=== PATIENT | male | born 1940 | race Caucasian/White ===

== ENCOUNTER 2017-04-27 17:25 | Emergency (ER) | payer OTHER ==
[~2017-04-27] VITALS: Ht 188 cm; Wt 108.9 kg
[~2017-04-27 17:25] MED LIST: CARDIZEM CD180 MG PO; FELODIPINE 5 MG5 M1 PO; FELODIPINE ER10 MG PO; GLUCOPHAGE500 MG PO; LIPITOR 20 MG T20 M1 PO; LOSARTAN POTAS100 MG PO; ORACEA40 MG PO; PRILOSEC 20 MG20 MG PO; PRILOSEC20 MG PO; SIMVASTATIN20 MG; TECTURNA; TECTURNA PO; TOPICORT15 G2; XARELTO10 MG PO; ZOCOR 20 MG TAB20 M1 PO
[2017-04-27 19:55] VITALS: BP 156/71
[2017-06-26] MEDS ORDERED: PROTONIX40 M1 PO (16:07)
[2017-07-20] MEDS ORDERED: XARELTO20 MG PO (09:09)
== END 2017-04-27 19:55 | disposition home or self-care (01) ==
LOC: ER 17:25
DX: S01.81XA Laceration without foreign body of other part of head, initial encounter (principal); S80.01XA Contusion of right knee, initial encounter; S60.415A Abrasion of left ring finger, initial encounter; E11.9 Type 2 diabetes mellitus without complications; I10 Essential (primary) hypertension; K21.9 Gastro-esophageal reflux disease without esophagitis; I48.91 Unspecified atrial fibrillation; E78.00 Pure hypercholesterolemia, unspecified; Z88.8 Allergy status to other drugs, medicaments and biological substances; Z87.891 Personal history of nicotine dependence; W01.0XXA Fall on same level from slipping, tripping and stumbling without subsequent striking against object, initial encounter; Y93.89 Activity, other specified; Y92.89 Other specified places as the place of occurrence of the external cause; Y99.8 Other external cause status

== ENCOUNTER → 2017-07-27 | Outpatient (CLI) | payer OTHER ==
[~2017-07-27] MED LIST changes: +PROTONIX40 M1 PO; +XARELTO20 MG PO
[2017-07-27 08:30] VITALS: BP 142/68
[2017-07-27 09:45] VITALS: BP 140/70
== END ==
LOC: OPONC
DX: D50.9 Iron deficiency anemia, unspecified (principal); R79.0 Abnormal level of blood mineral
CPT/HCPCS: 95000

== ENCOUNTER → 2018-03-07 | Outpatient (CLI) | payer OTHER ==
[2018-03-07 08:37] LABS: CREATININE 0.9 mg/dL (0.7-1.3)
== END ==
LOC: CAT 08:01
PROVIDERS: Family Medicine
DX: J84.10 Pulmonary fibrosis, unspecified (principal); J98.11 Atelectasis; M25.78 Osteophyte, vertebrae

== ENCOUNTER → 2018-04-12 | Outpatient (CLI) | payer OTHER ==
[~2018-04-12] VITALS: Ht 188 cm; Wt 112.9 kg
[~2018-04-12] MED LIST changes: +DILTIAZEM 24HR180 M1 PO; +DILTIAZEM HCL90 MG PO
--- NOTE | 2018-04-13 08:37 | P ---
[facility] [place] [address] PROCEDURE REPORT Name: WON MEDEROS Mery Room #: REG [facility] [id number] Admission: 04/12/18 Attend Phys: Royal Alvarez MD Discharge: Date of : 42 Report #: [id number] THIS REPORT FOR: //name// CC: Royal Duran BRIEF HISTORY: The patient is a 77-year-old male with a chronic cough. He has been treated with pantoprazole ____ it was increased to twice daily and cough persists. He also reports eating will stimulate a cough. In addition, he does have intermittent episodes of solid food dysphagia and has had previous esophageal dilation. PREOPERATIVE DIAGNOSIS: Chronic persistent cough. POSTOPERATIVE DIAGNOSES: 1. Patchy antral gastritis. 2. Small hiatus hernia. MEDICATIONS: Deep sedation with propofol per anesthesia. SPECIMEN: Biopsy gastritis. ESTIMATED BLOOD LOSS: 3 mL. PROCEDURE: EGD with biopsy and Norris dilation. FINDINGS: Prior to propofol sedation, procedure of upper endoscopy discussed with the patient as well as potential risks and its complications. He indicates he understands and desires to proceed. DESCRIPTION OF PROCEDURE: With the patient in left lateral decubitus position, the Olympus video endoscope was inserted in the cervical esophagus under direct vision without difficulty. Examination of this organ through its entire length revealed normal esophageal mucosa down the squamocolumnar junction. Squamocolumnar junction was inspected and noted to be unremarkable. No ulcers or erosions were seen. No Ace's mucosa was seen. No strictures or masses were seen. A small 2 cm sliding type hiatus hernia was noted. The mucosa in hernia was unremarkable. Scope was advanced in the stomach, was examined on end view as well as retroflexed views. There was patchy erythema in the antrum of stomach. No ulcers were seen. Upon retroflexion, no mass lesions were seen. The hiatus hernia was seen. There were no retained solids or liquids in the stomach. Pylorus was normal. Duodenal bulb was normal. Postbulbar duodenal sweep was normal. At that point, the scope was slowly withdrawn under careful circumferential views and confirmed the above findings. The patient tolerated the procedure well. [facility] [address] [place] [address] PROCEDURE REPORT Name: ORENJOSEWON Mery Room #: REG [facility].#: [id number] Admission: 04/12/18 Attend Phys: Royal Alvarez MD Discharge: Date of : 41 Report #: [id number] Subsequently, he was dilated with passage of a 54-Ethiopian Norris dilator without resistance. CONDITION OF THE PATIENT UPON DISCHARGE: Following the procedure, the patient drowsy. He will be discharged home when fully ambulatory. INSTRUCTIONS TO THE PATIENT AND FAMILY AT THE TIME OF DISCHARGE: I did not identify any endoscopic evidence of reflux esophagitis. It is noted that as soon as we advanced the scope in his oropharynx he started coughing and he coughed throughout much of the procedure. An etiology for his chronic cough is not identified endoscopically. He will follow up on biopsies today. He reports that cough will start often times when he swallows food. We will have him obtain a video swallow to evaluate for aspiration. At this point in time, I would have him continue his twice daily PPI. If cough continues and above-mentioned studies are negative, consider cough study, which is available if it is still open, which is being conducted with a novel drug for chronic cough. He will otherwise return to care of Dr. Hilton Duran and return to see me as needed. <ELECTRONICALLY SIGNED> By: Royal Alvarez MD 04/13/18 0837 0928 0952 Royal Alvarez MD /nt
--- NOTE | 2018-04-13 15:06 | PATH ---
[facility] [address] [place] [address] PATHOLOGY RPT PROCEDURE Name: WON MEDEROS Mery Room #: REG KRISTYN Guevara#: [id number] Admission: 04/12/18 Date of : 42 Discharge: Report #: [id number] Path Case #: [id number] [facility] Accession Number: [id number] . 01 Material submitted: . GASTRITIS BIOPSY R/O H PYLORI . 01 Clinical history: . Pre-OP DX: Dysphagia, reflux, cough Post-OP DX: Gastritis, small hiatal hernia . 02 Diagnosis: Gastric mucosa, gastritis rule out H. pylori, endoscopic biopsy: - Helicobacter pylori induced moderate active gastritis. - Focal intestinal metaplasia present. - Negative for atrophy or dysplasia. - Properly controlled immunohistochemical performed showing moderate number of organisms present. (IUV:pit 04/13/2018) QTP/04/13/2018 . 02 Electronically signed: . Sisi Villarreal MD, Pathologist NPI- [id number] . 01 Gross description: . Received in formalin labeled "Won Mederos, gastritis biopsy, rule out H. pylori," are 4 segments of cali soft tissue measuring 1.1 x 0.6 x 0.3 cm in aggregate dimensions and ranging from 0.3 to 0.5 cm in maximum dimension. The specimen is submitted entirely in cassette A1. (TSD; 04/12/2018) TOB/TOB . 02 Pathologist provided ICD-10: K29.70, B96.81 . 02 CPT . 217045, S26344 Specimen Comment: A courtesy copy of this report has been sent to Specimen Comment: [phone], . Specimen Comment: Report sent to / DR JUNE Specimen Comment: A duplicate report has been generated due to demographic updates. Performed at: [address], [place], [place] [id number] MD Isidro Fuller MD Phone: [phone] [facility] [place] [address] PATHOLOGY RPT PROCEDURE Name: WON MEDEROS W Room #: REG KRISTYN Guevara#: [id number] Admission: 04/12/18 Date of : 42 Discharge: Report #: [id number] Path Case #: [id number] Performed at: [address] [facility] [address] [place], [place] [id number] MD Sisi Villarreal MD Phone: [phone]
== END | disposition home or self-care (01) ==
LOC: GI 07:35
DX: K29.50 Unspecified chronic gastritis without bleeding (principal); B96.81 Helicobacter pylori [H. pylori] as the cause of diseases classified elsewhere; K21.9 Gastro-esophageal reflux disease without esophagitis; K44.9 Diaphragmatic hernia without obstruction or gangrene; R05 Cough; Z68.32 Body mass index [BMI] 32.0-32.9, adult; G47.30 Sleep apnea, unspecified; I10 Essential (primary) hypertension; I48.91 Unspecified atrial fibrillation; E78.5 Hyperlipidemia, unspecified; E11.9 Type 2 diabetes mellitus without complications; D50.9 Iron deficiency anemia, unspecified
CPT/HCPCS: 62110; 62900

== ENCOUNTER 2018-04-23 13:37 | Inpatient (IN) | payer OTHER ==
[~2018-04-23] VITALS: Ht 188 cm; Wt 112.9 kg
[2018-04-23 13:38] VITALS: BP 123/59
[2018-04-23 14:04] LABS: HEMATOCRIT 26.4 % (42.0-52.0); HEMOGLOBIN 8.5 gm/dL (14.0-18.0); MCH 20.3 pg (26.0-34.0); MCV 63.4 fL (80.0-100.0); PLATELET COUNT 305 thou/uL (150-400); RBC 4.17 mil/uL (4.50-6.00); RDW 18.5 % (10.5-14.5); WBC 5.6 thou/uL (4.0-11.0)
[2018-04-23 14:12] LABS: ANION GAP 12 mmol/L (7-16); BUN 16 mg/dL (7-18); CALCIUM 8.9 mg/dL (8.5-10.1); CHLORIDE 100 mmol/L (98-107); CO2 23 mmol/L (21-32); GLUCOSE 167 mg/dL (74-106); POTASSIUM 3.6 mmol/L (3.5-5.1); SODIUM 135 mmol/L (136-145)
[2018-04-23] MEDS ORDERED: CLARITIN10 M2 PO (14:12)
[2018-04-23 14:21] LABS: TROPONIN-I <0.06 ng/mL (<0.06)
[2018-04-23] MEDS ORDERED: OMEPRAZOLE 20 M20 M1 PO (14:24)
[2018-04-23 14:34] LABS: ABSOLUTE NEUTROPHILS 4.4 thou/uL (1.4-8.2)
[2018-04-23 14:35] LABS: ANISOCYTOSIS 2+; HYPOCHROMASIA 2+; MICROCYTES 2+; OVALOCYTES 1+
[2018-04-23 16:03] VITALS: BP 123/63
[2018-04-23 16:44] VITALS: BP 134/59
[2018-04-23 17:22] VITALS: BP 143/78
--- NOTE | 2018-04-23 18:10 | NUR ---
NEWLY ADMITTED FROM ER UNDER 'S CARE. SOB WITH EXCERTION AND SYNCOPE. AXOX4. TELE MONITOR ATTACHED. FAMILY AT BEDSIDE. BREATHING REGUALR AND LUNG SOUNDS CELAR TO AUSCULTATION. ON RA. DENIES ANY PAIN, NAUSEA, VOMITING CHILLS AT THE TIME OF ARRIVAL. FALL PRECAUTION INITIATED. NO S/S ACUTE DISTRESS NOTED OR REPORTED AT THIS TIME. PER FAMILY AND ER, ALREADY SAW THE PATIENT DOWN AT ER. ALL QUESTIONS ANSWERED PER PATIENT AND FAMILY. BUE NOTED WITH REDSPOTS AND PER PT, IT'S FROM XERALTO BECUA OF HIS AFIB CONDITION. PT IS HERE FOR OBSERVATION. WILL CONT TO MONITOR FOR ANY CHANGES IN CONDITION.
[2018-04-23 19:20] VITALS: BP 129/69
[2018-04-24 03:55] VITALS: BP 125/76
--- NOTE | 2018-04-24 06:59 | NUR ---
PROGRESS PT A/O X4 VSS, SLEPT ALL NIGHT WEARING CPAP . UP WITH SBA DENIES PAIN CONTINUE PLAN OF CARE.
[2018-04-24 08:00] VITALS: BP 103/55
--- NOTE | 2018-04-24 08:18 | EKG ---
[address] [address] ELECTROCARDIOGRAM REPORT Name: WON MEDEROS Room #: 459-P [facility] M.R.#: [id number] Admission: 04/23/18 Attend Phys: Hilton Duran MD Discharge: Date of : 41 Report #: [id number] THIS REPORT FOR: //name// [facility] ED Test Date: 2018-04-23 Test Time: 13:48:33 Pat Name: WON MEDEROS Department: Room: 45 Gender: M Charge Manager: CARLOS : 1940 Requested By: Jaswinder Mason Order Number: [id number] MD: Uriel Mathur Measurements Intervals [place] Rate: 93 P: [place]: QRS: 11 QRSD: 104 T: 60 QT: 375 QTc: 467 Interpretive Statements Atrial fibrillation Compared to ECG 06/23/2017 18:58:43 Sinus rhythm no longer present Atrial premature complex(es) no longer present Electronically Signed On 04-24-2018 8:18:15 MANGLE ROLL OPERATOR by Uriel Mathur [email or web address] <ELECTRONICALLY SIGNED> By: Uriel Mathur MD 04/24/18817 1348 47 Uriel Mathur MD /KAUR
[2018-04-24 12:37] LABS: % SATURATION 4 % (20-39); IRON 13 ug/dL (65-175); TIBC 369 ug/dL (250-450)
--- NOTE | 2018-04-24 13:33 | NUR ---
PT ADMITTED RELATED TO COUGHING. CM REVIEWED CHART AND SPOKE WITH CARE TEAM. CM MET WITH PT AND SPOUSE AT BEDSIDE THIS DAY. PT IS A&O X4. CM ROLE INTRODUCED. PT INDICATED HE AND HIS LIVE IN A HOUSE WITH NO STEPS TO ENTER AND NO STEPS INSIDE. 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 PT INDICATED THAT HE HAS A CPAP FOR HOME USE. PT INDICATED HE HAD HOME HEALTH IN THE PAST FOLLOWING A KNEE REPLACEMENT. PT INDICATED HE PLANS TO RETURN HOME ONCE MEDICALLY STABLE. CM TO FOLLOW INDICATED WITH DC PLANNING.
--- NOTE | 2018-04-24 14:52 | 2DMMODE ---
[facility] [address] [place] [address] 2 D/M-MODE ECHOCARDIOGRAM Name: WON MEDEROS W Room #: 459-P [facility] IN .R.#: [id number] Admission: 04/23/18 Attend Phys: Hilton Duran, Discharge: Date of : 42 Date of Service: 04/24/18 1451 Report #: [id number] THIS REPORT FOR: //name// APPROVED REPORT Study performed: 04/24/2018 14:06:42 EXAM: Comprehensive 2D, Doppler, and color-flow Echocardiogram Patient Location: Bedside Room #: 459 Status: routine BSA: 2.39 HR: 100 bpm BP: 103/55 mmHg Rhythm: Atrial Fibrillation Other Information Study Quality: Adequate Indications Afib with RVR. Hx: PAF, COPD, DM, HTN, HLP 2D Dimensions RVDd: 44.50 mm IVSd: 13.64 (7-11mm) LVOT Diam: 22.78 (18-24mm) LVDd: 53.17 mm PWd: 13.34 (7-11mm) Ascending Ao: 38.43 (22-36mm) LVDs: 36.85 (25-40mm) Aortic Root: 38.60 mm Volumes Left Atrial Volume (Systole) Single Plane 4CH: 83.93 mL Single Plane 2CH: 110.50 mL LA ESV Index: 42.00 mL/m2 Aortic Valve AoV Peak Pepe.: 1.30 m/s AO Peak Gr.: 8.09 mmHg LVOT Max P.23 mmHg LVOT Max V: 0.90 m/s LENORA Vmax: 2.79 cm2 Mitral Valve MV Decel. Time: 200.19 ms MV E Max Pepe.: 0.94 m/s [facility] [address] [place] [address] 2 D/M-MODE ECHOCARDIOGRAM Name: WON MEDEROS Room #: 459-P [facility] IN ..#: [id number] Admission: 04/23/18 Attend Phys: Hilton Duran, Discharge: Date of : 42 Date of Service: 04/24/18 1451 Report #: [id number] Pulmonary Valve PV Peak Pepe.: 1.22 m/s PV Peak Gr.: 6.01 mmHg Tricuspid Valve TR Peak Pepe.: 2.05 m/s RAP Estimate: 5.00 mmHg TR Peak Gr.: 16.74 mmHg PA Pressure: 22.00 mmHg Left Ventricle The left ventricle is normal size. There is normal LV segmental wall motion. Mild concentric left ventricular hypertrophy. Left ventricular systolic function is normal. LVEF is 55-60%. This study is not technically sufficient to allow evaluation of the LV diastolic function due to atrial fibrillation. Right Ventricle Right ventricle is at the upper limits of normal. The right ventricular systolic function is normal. Atria Left atrium is moderately dilated. Right atrium is at the upper limits of normal. Aortic Valve The Aortic valve is mildly sclerotic. No aortic regurgitation is present. There is no aortic valvular stenosis. Mitral Valve The mitral valve is normal in structure. Mild mitral regurgitation. Tricuspid Valve The tricuspid valve is normal in structure. Trace tricuspid regurgitation. Estimated PAP is 20-25mmHg. Pulmonic Valve The pulmonary valve is normal in structure. Trace pulmonic regurgitation. Great Vessels Aortic root is upper limits at 3.9cm. Ascending aorta measures at the upper limits of normal. IVC is normal in size and collapses >50% with inspiration. Pericardium There is no pericardial effusion. [facility] [address] [place] [address] 2 D/M-MODE ECHOCARDIOGRAM Name: WON MEDEROS Room #: 459-P [facility] IN ..#: [id number] Admission: 04/23/18 Attend Phys: Hilton Duran, Discharge: Date of : 42 Date of Service: 04/24/18 1451 Report #: [id number] <Conclusion> The left ventricle is normal size. LVEF is 55-60%. Left atrium is moderately dilated. The Aortic valve is mildly sclerotic. No aortic regurgitation is present. There is no aortic valvular stenosis. The mitral valve is normal in structure. Mild mitral regurgitation. The tricuspid valve is normal in structure. Trace tricuspid regurgitation. Estimated PAP is 20-25mmHg. The pulmonary valve is normal in structure. Trace pulmonic regurgitation. Aortic root is upper limits at 3.9cm. Ascending aorta measures at the upper limits of normal. There is no pericardial effusion. <ELECTRONICALLY SIGNED> By: Sander Puentes MD 04/24/18 1451 145 145 Sander Puentes MD /INF
[2018-04-24 15:11] VITALS: BP 109/62
--- NOTE | 2018-04-24 15:35 | NUR ---
ASSUMED CARE AT 0700. AXOX4. ECHO DONE AT BEDSIDE. STATUS CHANGE TO INPATIENT. CARDIOLOGY SEEING PT. GI FOLLOWING HIM. EGD FROM APR 12 CAME BACK POSITIVE FOR H PYLORI. PUT ON ATB PO. OK BY FOR COFFEE AND SODA AND REMAIN ON HEART HEALTHY DIET. TACHYCARDIA WITH COUGHING. DENIES CHEST PAIN. NO S/S ACUTE DISTRESS NOTED OR REPORTED AT THIS TIME. WILL CONT TO MONITOR FOR ANY CHANGES IN CONDITION.
[2018-04-24 19:18] VITALS: BP 130/64
[2018-04-25 06:08] LABS: HEMOGLOBIN 8.6 gm/dL (14.0-18.0); MCH 21.2 pg (26.0-34.0); MCHC 33.3 g/dL (28.0-37.0); MCV 63.9 fL (80.0-100.0); RBC 4.07 mil/uL (4.50-6.00); RDW 18.6 % (10.5-14.5); WBC 5.2 thou/uL (4.0-11.0)
[2018-04-25 07:23] VITALS: BP 141/56
--- NOTE | 2018-04-25 07:24 | NUR ---
PROGRESS PT ALERT AND ORIENTED X4, DENIES PAIN.LUNGS CLEAR BUT DIMINISHED. NPO AFTER MIDNIGHT PENDING BARIUM SWALLOW THIS AM. PULMONARY FUNCTION TEST TO BE PERFORMED AFTER AND ANGIOPLASTY TOMORROW.
[2018-04-25 14:16] VITALS: BP 92/76
--- NOTE | 2018-04-25 16:32 | NUR ---
PT STABLE THROUGHOUT SHIFT. PT HAD SWALLOW TEST WHICH HE TOLERATED WELL, HOWEVER HE WAS NOT ABLE TO COMPLETE PULMONAY FUNCTION TEST HE BECAME TO FAINT. PT RESTING COMFORTABLY WITH NO COMPLAINTS. FAMILY AT BEDSIDE.
[2018-04-25 19:03] VITALS: BP 127/69
[2018-04-26 00:05] VITALS: BP 129/82
[2018-04-26 03:38] VITALS: BP 111/74
--- NOTE | 2018-04-26 04:53 | NUR ---
Assumed care at 1845. Pt resting in bed. Hasnt had any episode of syncope. But his HR was in the 130s for 15mins. Called and informed Dr Thorne for adviced me to give Metoprolol 50mg onetime. Pt was not symptomatic and other vitals where stable. HR has now been in the 110s pt denies dyspnea, headache, chest pain. No identified needs at the moment. Will continue to monitor.
[2018-04-26 07:25] VITALS: BP 114/82
[2018-04-26 08:25] LABS: BE(vivo) -2.1 mmol/L (-2 to +3); HCO3 22.3 mmol/L (22.0-26.0); PCO2 VENOUS 36.8 mmHg (41.0-51.0); PO2 VENOUS 30.7 mmHg (35.0-45.0)
[2018-04-26 08:28] LABS: BE(vivo) -2.1 mmol/L (-2 to +3); HCO3 22.3 mmol/L (22.0-26.0); PCO2 36.7 mmHg (35.0-45.0); pH 7.402 (7.360-7.450); sO2 89.1 % (92.0-98.0)
[2018-04-26 08:29] LABS: PO2 55.3 mmHg (80.0-100.0)
--- NOTE | 2018-04-26 10:09 | CATHLAB ---
[facility] [place] [address] INVASIVE PROCEDURE REPORT Name: WON MEDEROS Room #: 459-P [facility] IN ..#: [id number] Admission: 04/23/18 Attend Phys: Hilton Duran, Discharge: Date of : 42 Date of Service: 04/26/18 1009 Report #: [id number] THIS REPORT FOR: //name// APPROVED REPORT Study performed: 04/26/2018 07:35:22 Patient Details Patient Status: In-Patient Room #: The patient is a 77 year-old male Event Personnel Heriberto Francis Tire Repairer, Stephen Pavon RN, Tanya Stuart RTR, KERRIE Grey, Jonathan Beaver Monitor Procedures Performed Right and Left Heart Cath w/or w/o Coronarie [id number] [facility] Indication Atrial fibrillation, Dyspnea Risk Factors Chronic Lung DiseaseHypercholesterolemia, Hypertension Procedure Narrative The Right Groin^ was infiltrated with 1% Lidocaine subcutaneous anesthesia. A 4FR MULTIPACK JR 4/JL 4/PIG #[id number] sheath was inserted into the RFA^. Coronary angiography was performed using coronary diagnostic catheters. The right coronary system was accessed and visualized with a JR4 catheter. The left coronary system was accessed and visualized with a 4FR JL 5.0 #[id number] catheter. The left ventricle was accessed and visualized with a PIGTAIL catheter. Left ventricular/Aortic Valve gradient assessed via catheter pullback. Left ventriculogram was performed in 30 degree projection. Hemostasis was obtained with manual pressure following sheath removal without any complications. The patient tolerated the procedure well and there were no complications associated with the procedure. There was no hematoma. Intraoperative Conscious Sedation Sedation start time: 8.06 Case end Time: 8.47 Fentanyl 50 mcg Versed 1.[address] [address] INVASIVE PROCEDURE REPORT Name: WON MEDEROS Room #: 459-P [facility] IN .R.#: [id number] Admission: 04/23/18 Attend Phys: Hilton Duran, Discharge: Date of : 42 Date of Service: 04/26/18 1009 Report #: [id number] Fluoro Time: 4.38 minutes Dose: DAP 8403 cGycm2 904 mGy Contrast Type and Amount: Omnipaque 115 ml Coronary Angiography The patient's coronary anatomy is right dominant. Diagnostic Cath Left Main This is a patent vessel, with no flow-limiting lesions. LAD This is a moderate size caliber vessel, traversing the anterior wall and terminating at the apex. This vessel is patent with no flow-limiting lesions. Diagonal 1 This is a moderate size caliber vessel, patent with no flow-limiting lesions. Circumflex This is a moderate size caliber vessel, patent with no flow-limiting lesions. OM1 This is a patent vessel, with no flow-limiting lesions. OM2 This is a patent vessel, with no flow-limiting lesions. Right Coronary This is a moderate to large caliber vessel, dominant with no flow-limiting lesions. R PDA This is a patent vessel, with no flow-limiting lesions. RPLV This is a patent vessel, with no flow-limiting lesions. Left Ventriculography The left ventricle is normal in size with normal contractility. The left ventricular ejection fraction is estimated to be 55-60%. Hemodynamics The right atrial mean pressure is 15 mmHg. The right ventricular pressure is 39/7 mmHg. The pulmonary artery pressure is 41/25 mmHg with a mean of 31 mmHg. The mean pulmonary capillary wedge pressure is 21 mmHg. The aortic pressure is 129/78 mmHg with a mean of 99 mmHg. The left ventricular pressure is 128/9 mmHg with a mean of mmHg. The left ventricular end diastolic pressure is 22 mmHg. There was no gradient across the aortic valve upon pullback. Pullback from the left ventricle to the aorta revealed no gradient across the aortic valve. The cardiac output using the Chiquis method is 9.37 L/min. The cardiac index using the Chiquis method is 3.93 L/min/m2. Conclusion 1. Angiographically normal coronary arteries. [facility] [address] [place] [address] INVASIVE PROCEDURE REPORT Name: [place] Room #: 459-P ADM IN M.R.#: [id number] Admission: 04/23/18 Attend Phys: Hilton Duran, Discharge: Date of : 42 Date of Service: 04/26/18 1009 Report #: [id number] 2. Normal LV systolic function. 3. Right-sided hemodynamics measured. <ELECTRONICALLY SIGNED> By: Heriberto Francis MD 04/26/189 08 08 Heriberto Francis MD /INF
[2018-04-26 15:15] VITALS: BP 100/56
--- NOTE | 2018-04-26 16:57 | NUR ---
PT STABLE THROUGHOUT SHIFT. PT WAS SEEN IN UTILITY AIDE THIS MORNING, NO INTERVENTION REQUIRED. PT RESTING COMFORTABLY WITH NO COMPLAINTS. FAMILY AT BEDSIDE.
--- NOTE | 2018-04-26 17:01 | HC ---
[facility] [place] [address] CONSULTATION Name: WON MEDEROS Room #: 459-P ADM IN M.R.#: [id number] Admission: 04/23/18 Attend Phys: Hilton Duran MD Discharge: Date of : 42 Report #: [id number] THIS REPORT FOR: //name// CC: Hilton Duran REFERRING PHYSICIAN: Dr. Hilton Duran. REASON FOR REFERRAL: Severe paroxysmal cough. HISTORY OF PRESENT ILLNESS: The patient a 77-year-old white male who presented to Emergency Room with progressive dyspnea, severe paroxysmal cough with presyncopal episode. A pulmonary consultation was requested. The patient states that he has had a cough for a number of years. It has predominantly been nonproductive. The cause of his cough has been unknown. He was at one point given allergy/immunology shots, which did not seem to help. He has sleep apnea, has been quite compliant with the use of CPAP. The patient notes over the past few months cough has worsened. In fact, at one point, he has near syncopal episode. For that reason, he presents to the Emergency Room. He has been followed by his strings teacher. The cause of his cough has not been delineated though he was told that he may have a component of asthma. Attempts were made to do PFTs. The patient apparently had a syncopal episode during the procedure. PFTs were not performed. PAST MEDICAL HISTORY: Notable for sleep apnea, on CPAP; atrial fibrillation; hypertension; diabetes mellitus type 2; gastroesophageal reflux disease; iron deficiency anemia; hyperlipidemia; history of GI bleed. PAST SURGICAL HISTORY: Status post right rotator cuff surgery, right carpal tunnel surgery, right ulnar nerve surgery, right total knee replacement, umbilical herniorrhaphy, appendectomy. ALLERGIES: ALBUTEROL, which causes him to cough all the time. PROPOXYPHENE causes rash. HOME MEDICATION LIST: Include Xarelto, omeprazole, Glucophage, Lipitor, losartan, diltiazem. FAMILY HISTORY: Notable for heart disease in father who at the age of 72. SOCIAL HISTORY: He is . 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 The patient has smoked for a number of years, but quit more than 33 years ago. He rarely drinks. [address] [address] CONSULTATION Name: WON MEDEROS Room #: 459-P [facility] IN ..#: [id number] Admission: 04/23/18 Attend Phys: Hilton Duran MD Discharge: Date of : 42 Report #: [id number] REVIEW OF SYSTEMS: As mentioned above, otherwise 10-point system review negative. In terms of his cough, it is quite variable, mostly in the daytime. Nothing seems to make it better or worse. It is worse over the last couple of months, however. PHYSICAL EXAMINATION: GENERAL: He is awake, alert, in no distress. VITAL SIGNS: Temperature is 98 degrees Fahrenheit, pulse is 100, respiratory rate is 18, blood pressure is 90/76 mmHg, saturation is 98%. HEENT: Normocephalic, atraumatic. NECK: Supple, no lymphadenopathy or thyromegaly. CHEST: Breath sounds are clear bilaterally without any rales or wheezes. CARDIOVASCULAR: Irregularly irregular. No murmurs or gallop. Pulses are 2+/4+ bilaterally. ABDOMEN: Soft, nontender, no organomegaly or masses felt. GENITOURINARY: Deferred. RECTAL: Deferred. EXTREMITIES: No edema, cyanosis or clubbing. LABORATORY DATA: Chest x-ray is clear. 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 Video swallow was unremarkable. Echocardiogram showed normal ejection fraction, mild mitral regurgitation, pulmonary artery pressure is normal, otherwise, no other significant findings. CBC is normal. Electrolytes are normal. IMPRESSION: 1. Chronic cough in this 77-year-old white male with a history of sleep apnea, atrial fibrillation. He has smoked for several years, but quit more than 30 years ago. His cough has been predominantly nonproductive. The cough has worsened over the last couple of months. Etiology of the patient's cough remains unclear. Possible causes include reactive airway disease. It is unclear the role of an anterior mediastinal cyst as a trigger for his cough. Please note CT chest findings. 2. Obstructive sleep apnea, clinically asymptomatic, appears to be compliant. 3. Atrial fibrillation. 4. Hypertension. 5. Diabetes mellitus type 2. 6. Gastroesophageal reflux disease. 7. Atrial fibrillation. RECOMMENDATION: The patient's cough has been progressively worse over the last couple of months, resulting in near syncopal episode. Given his history of tobacco use, I would suggest trial corticosteroids. Pulmonary function test will be helpful, however, the patient could not do the PFTs due to near syncopal episode. [facility] [address] [place] [address] CONSULTATION Name: WON MEDEROS Room #: 459-P [facility] IN M.R.#: [id number] Admission: 04/23/18 Attend Phys: Hilton Duran MD Discharge: Date of : 42 Report #: [id number] As mentioned above, ____ the role of the anterior mediastinal cyst as a cause for his cough. Ideally, PFTs will be helpful to discern any reactive airway disease, etc. Methacholine challenge test will be considered, though not certain whether the patient can go through with the testing. For now, I would recommend trial of corticosteroids, continue treatment for gastroesophageal reflux disease. Continue CPAP. Recommend CT sinus to rule out chronic sinus disease. We will obtain IgE level. Lastly, if the cough persists despite therapeutic trials, recommend anti-tussive for now until further workup can be performed. Thank you for this consultation. <ELECTRONICALLY SIGNED> By: Bj Senior MD 04/26/18 1701 1545 0015 Bj Senior MD /nt
[2018-04-26 19:25] VITALS: BP 122/61
--- NOTE | 2018-04-27 03:30 | NUR ---
Assumed care at 1845. Pt restin in bed with at bedside. Hasnt had any episode of tachycardia or syncope. Pt is exicited that they wasnt a need for a heart catheterization and the possibility of going home today. No identified needs at the moment. Will continue to monitor.
[2018-04-27 04:50] VITALS: BP 132/72
[2018-04-27 04:52] LABS: HEMATOCRIT 25.8 % (42.0-52.0); HEMOGLOBIN 7.9 gm/dL (14.0-18.0); MCH 20.2 pg (26.0-34.0); MCHC 30.6 g/dL (28.0-37.0); RBC 3.91 mil/uL (4.50-6.00); RDW 18.5 % (10.5-14.5)
[2018-04-27 05:06] LABS: CALCIUM 8.8 mg/dL (8.5-10.1); CREATININE 0.9 mg/dL (0.7-1.3); POTASSIUM 4.1 mmol/L (3.5-5.1)
[2018-04-27 07:43] VITALS: BP 118/66
[2018-04-27] MEDS ORDERED: AMOXICILLIN 50500 M1 PO (07:59)
[2018-04-27] MEDS ORDERED: CLARITHROMYCIN250 M2 PO (07:59)
[2018-04-27] MEDS ORDERED: ATENOLOL 25MG T25 M1 PO (08:00)
[2018-04-27 09:56] VITALS: BP 118/66
[2018-04-27] MEDS ORDERED: VENOFER200 MG/10 IVPB (13:19)
--- NOTE | 2018-04-27 14:18 | NUR ---
PT STABLE THROUGHOUT SHIFT. PT DISCHARGED HOME. PT GIVEN DC INSTRUCTIONS, RX'S AND RX EDUCATION. PT LEFT UNIT VIA WHEELCHAIR TO PRIVATE VEHICLE.
--- NOTE | 2018-04-27 14:39 | NUR ---
CARE TEAM INDICATED THAT PT IS MEDICALLY STABLE TO DISCHARGE HOME THIS DAY. PT IS TO COME TO THE OP INFUSION CLINIC Monday04/30/18 AT 10:00 FOR IV IRON. ORDERS WERE SENT TO THE INFUSION CLINIC AND [place] VISITED WITH PT PRIOR TO DISHCARGE. NO OTHER CM INTERVENTION INDICATED AT THIS TIME. CASE CLOSED.
== END 2018-04-27 14:49 | disposition home or self-care (01) | DRG 286 ==
LOC: ER 13:37 → 4W 15:01 → EROBS 15:01 → 4W 16:56 → ENTRNSPT 04-27 14:22 → EDTRNSPTSTS 04-27 14:23 → 4W 04-27 14:49
PROVIDERS: Emergency Medicine; Internal Medicine Cardiovascular Disease; Nurse Practitioner; ADMIT Family Medicine
PROC: B2151ZZ Fluoroscopy of Left Heart using Low Osmolar Contrast (ICD-10-PCS; principal; 2018-04-26)
PROC: 4A023N8 Measurement of Cardiac Sampling and Pressure, Bilateral, Percutaneous Approach (ICD-10-PCS; principal; 2018-04-26)
PROC: B2111ZZ Fluoroscopy of Multiple Coronary Arteries using Low Osmolar Contrast (ICD-10-PCS; principal; 2018-04-26)
DX: I48.1 Persistent atrial fibrillation (principal); E43 Unspecified severe protein-calorie malnutrition; K57.33 Diverticulitis of large intestine without perforation or abscess with bleeding; K29.71 Gastritis, unspecified, with bleeding; E78.5 Hyperlipidemia, unspecified; I10 Essential (primary) hypertension; E11.9 Type 2 diabetes mellitus without complications; Z96.651 Presence of right artificial knee joint; G47.33 Obstructive sleep apnea (adult) (pediatric); R13.10 Dysphagia, unspecified; J44.9 Chronic obstructive pulmonary disease, unspecified; D50.9 Iron deficiency anemia, unspecified; J32.0 Chronic maxillary sinusitis; E78.00 Pure hypercholesterolemia, unspecified; K21.9 Gastro-esophageal reflux disease without esophagitis; Z88.8 Allergy status to other drugs, medicaments and biological substances; Z90.49 Acquired absence of other specified parts of digestive tract; Z80.0 Family history of malignant neoplasm of digestive organs; Z87.891 Personal history of nicotine dependence; Z82.49 Family history of ischemic heart disease and other diseases of the circulatory system; Z86.010 Personal history of colon polyps
CPT/HCPCS: 10045

== ENCOUNTER → 2018-05-01 | Outpatient (CLI) | payer OTHER ==
[~2018-05-01] MED LIST changes: +AMOXICILLIN 50500 M1 PO; +ATENOLOL 25MG T25 M1 PO; +CLARITHROMYCIN250 M2 PO; +CLARITIN10 M2 PO; +OMEPRAZOLE 20 M20 M1 PO; +VENOFER200 MG/10 IVPB
[2018-05-01 09:50] VITALS: BP 123/74
[2018-05-01 10:45] VITALS: BP 106/75
== END ==
LOC: OPONC 00:56
DX: D50.9 Iron deficiency anemia, unspecified (principal)
CPT/HCPCS: 95000

== ENCOUNTER → 2018-05-04 | Outpatient (CLI) | payer OTHER ==
[2018-05-04 10:17] LABS: ABSOLUTE NEUTROPHILS 4.7 thou/uL (1.4-8.2); BASOPHILS 0.2 % (0.0-2.0); EOSINOPHILS 1.2 % (0.0-3.0); HEMOGLOBIN 10.3 gm/dL (14.0-18.0); LYMPHOCYTES 17.4 % (24.0-44.0); MCH 22.1 pg (26.0-34.0); MCHC 31.3 g/dL (28.0-37.0); MCV 70.4 fL (80.0-100.0); MONOCYTES 10.7 % (1.0-8.0); PLATELET COUNT 211 thou/uL (150-400); POLYS 70.5 % (36.0-66.0); RBC 4.68 mil/uL (4.50-6.00); RDW 20.9 % (10.5-14.5); WBC 6.6 thou/uL (4.0-11.0)
[2018-05-04 10:42] LABS: ALBUMIN 3.5 g/dL (3.4-5.0); CALCIUM 8.3 mg/dL (8.5-10.1); POTASSIUM 4.3 mmol/L (3.5-5.1); TOTAL BILIRUBIN 0.3 mg/dL (<0.1-1.0); TOTAL PROTEIN 6.1 g/dL (6.4-8.2)
[2018-05-04 10:53] VITALS: BP 114/64
--- NOTE | 2018-05-04 11:04 | NUR ---
PT HERE FOR 2ND AND LAST IRON [facility] INFUSION AN OUTPT; HAD 3 INFUSIONS WHILE IN THE HOSPITAL. REPORTS DOING FAIRLY WELL BUT FEELS LIKE HE IS HAVING OFF AND ON DIZZINESS MORE SO THAN WHEN LAST IN THE HOSPITAL. HAS ALSO BEEN LOSING WEIGHT. DENIES NOTICING ANY SIGNS OF BLOOD LOSS. HAS BEEN IN CONTACT WITH DR. JUNE REGARDING ALL OF THESE THINGS AND CAME FROM HIS OFFICE THIS MORNING. LABS ORDERED AND DRAWN WITH PERIPHERAL IV STICK. VENOFER INFUSED OVER 30 MINUTES WITHOUT INCIDENT, NO S/S REACTION. ALSO HAD CXR PRIOR TO ARRIVAL. PT STATES PLAN IS FOR HIM TO GO ON HOME TODAY AND DR. JUNE WILL F/U WITH THEM LATER AFTER REVIEWING ALL TESTS. PT DIMSISSED IN STABLE CONDITION WITH .
[2018-05-04 11:17] LABS: ANISOCYTOSIS 2+
[2018-05-04 11:18] LABS: HYPOCHROMASIA 2+; MICROCYTES 2+; OVALOCYTES FEW; POLYCHROMASIA OCCASIONAL
== END ==
LOC: OPONC 02:48
PROVIDERS: Family Medicine
DX: D50.9 Iron deficiency anemia, unspecified (principal)
CPT/HCPCS: 95000

== ENCOUNTER → 2018-05-30 | Outpatient (CLI) | payer OTHER | END | disposition home or self-care (01) | LOC: GI 06:14 | DX: D50.8 Other iron deficiency anemias (principal); I48.91 Unspecified atrial fibrillation; Z88.8 Allergy status to other drugs, medicaments and biological substances; Z98.890 Other specified postprocedural states; Z79.899 Other long term (current) drug therapy ==

== ENCOUNTER → 2018-07-05 | Outpatient (CLI) | payer OTHER ==
[~2018-07-05] VITALS: Ht 188 cm; Wt 112.9 kg
[~2018-07-05] MED LIST changes: +ATENOLOL 50MG T50 M1 PO; +ZANTAC 150MG T150 MG PO
--- NOTE | ~2018-07-05 | P ---
[facility] [place] [address] PROCEDURE REPORT Name: WON MEDEROS Mery Room #: REG [facility]#: [id number] Admission: 07/05/18 ������������������ Attend Phys: Royal Alvarez MD Discharge: ������������������ Date of : 42 Report #: [id number] THIS REPORT FOR: //name// CC: Royal Duran MD DATE OF SERVICE: 07/05/2018 BRIEF HISTORY: The patient is a 77-year-old male who has a history of colon polyps. He has had adenomas in the past. FAMILY HISTORY: Notable for colon cancer in mother in her 70s and a sister in her 50s. The patient also has had iron deficiency anemia and previous evaluations have been nondiagnostic. However, he has been noted to have erosions of ileum in the past. He still has evidence of iron deficiency anemia. PREOPERATIVE DIAGNOSES: History of colon polyps, family history of colon cancer and persistent iron deficiency anemia. POSTOPERATIVE DIAGNOSES: 1. Multiple colon polyps. 2. Bvhomjiw-xt-vcyggl diverticulosis coli, left colon. 3. Internal hemorrhoids. MEDICATIONS: Deep sedation with propofol per anesthesia. SPECIMENS: 1. Polyp from hepatic flexure. 2. Polyp from mid transverse colon. 3. Polyp from 30 cm. ESTIMATED BLOOD LOSS: 3 mL. PROCEDURE: Colonoscopy to cecum and terminal ileum with biopsy. FINDINGS: Prior to propofol sedation, procedure of colonoscopy was discussed with the patient as well as potential risks and its complications. He indicates he understands and desires to proceed. DESCRIPTION OF PROCEDURE: With the patient in left lateral decubitus position, digital examination was completed, which revealed no abnormalities. Subsequently, the Olympus video colonoscope was introduced into the rectum, advanced under direct vision to the cecum. This was done with minimal difficulty. The cecum was identified by the ileocecal valve and the appendiceal orifice. I was able to visualize the distal segment of the terminal ileum. I [facility] [address] [place] [address] PROCEDURE REPORT Name: WON MEDEROS Mery Room #: REG [facility]#: [id number] Admission: 07/05/18 ������������������ Attend Phys: Royal Alvarez MD Discharge: ������������������ Date of : 42 Report #: [id number] was able to advance about 20-25 cm of the scope into the ileum. No abnormalities were seen. Specifically, there is no evidence of ulcerations, erosions or bleeding lesions. At that point, scope was slowly withdrawn and careful circumferential views obtained including retroflexing the scope in the ascending colon. There was some debris in the cecum including a moderate amount of seed material. We vigorously irrigated, lavaged and cleaned up as much as possible. Not all the seeds can be removed, but overall reasonably good views were obtained to the cecum. There was no evidence of bleeding lesions or neoplastic lesions. At that point, scope was slowly withdrawn and careful circumferential views obtained including retroflexion of the scope in the ascending colon. Upon slow withdrawal of the scope, the prep otherwise was good. The mucosa was within normal limits, normal vascular pattern, normal light reflex. As we withdrew the scope, diminutive polyp was seen and removed with biopsy forceps at the hepatic flexure and also the mid transverse colon. The scope was further withdrawn and he was found to have moderately severe left-sided diverticular disease without endoscopic evidence of diverticulitis. At 30 cm, another diminutive polyp was seen and removed with biopsy forceps. Scope was further withdrawn. No additional neoplastic lesions were seen. The mucosa was within normal limits. Scope was withdrawn in the rectum upon retroflexion. No abnormalities were seen other than small hemorrhoids. Scope withdrawn. The patient tolerated the procedure well. CONDITION OF THE PATIENT UPON DISCHARGE: Following procedure, the patient drowsy, aroused, conversant and will be discharged to home when fully ambulatory. INSTRUCTIONS TO THE PATIENT AND FAMILY AT THE TIME OF DISCHARGE: We will follow up on the path of the polyps. If three or more polyps are adenomas, he should return in 3 years. Otherwise, he should return in 5 years due to his family history. He has had a chronic iron deficiency anemia. He has had workup including upper endoscopy, colonoscopy, and M2 capsule study, all of which have been nondiagnostic. We will start him on iron replacement. We will check a CBC in about 4 weeks. He should return to the care of Dr. Hilton Duran and return to see me as needed. If he shows further evidence of blood loss or iron deficiency anemia, further GI evaluation could be considered. Last colonoscopy was 04/2016. Withdrawal time from the cecum was 11 minutes 33 seconds. ��������������������������������������������� ���������������������������������������� By: ��������������������������������������������� [id number] Royal Alvarez MD /nt
--- NOTE | 2018-07-06 16:05 | PATH ---
[facility] [address] [address] PATHOLOGY RPT PROCEDURE Name: WON MEDEROS Room #: REG KRISTYN Aura.#: [id number] ������������������ Admission: 07/05/18 ������������������ Date of : 42 Discharge: Report #: [id number] Path Case #: [id number] [facility] Accession Number: [id number] . 01 Material submitted: . PART A: hepatic flexure - BX POLYP AT HEPATIC FLEXURE PART B: colon - BX POLYP AT MID TRANSVERSE COLON. Modifiers: mid, transverse PART C: colon - BX POLYP AT 30CM . 01 Clinical history: . Pre-OP DX: Anemia, family HX colon cancer Post-OP DX: Diverticulosis, colon polyps, hemorrhoids . 02 Diagnosis: A. Polyp, at hepatic flexure, endoscopic biopsy: - Tubular adenoma. - Negative for high-grade dysplasia. . B. Polyp, at mid transverse colon, endoscopic biopsy: - Tubular adenoma. - Negative for high-grade dysplasia. . C. Polyp, at 30 cm, endoscopic biopsy: - Tubular adenoma. - Negative for high-grade dysplasia. (IUV:paul; 07/06/2018) QMS/07/06/2018 . 02 Electronically signed: . Sisi Villarreal MD, Pathologist NPI- [id number] . 01 Gross description: . A. Received in formalin labeled "Jossejassi Won, BX polyp at hepatic flexure," is a single segment of cali soft tissue measuring 0.4 cm in maximum dimension. The specimen is entirely submitted in cassette A1. . B. Received in formalin labeled "LarWon keene, BX polyp at mid transverse colon," is a single segment of cali soft tissue measuring 0.3 cm in maximum dimension. The specimen is entirely submitted in cassette B1. . C. Received in formalin labeled "Won Mederos, BX polyp at 30 cm," is a single segment of cali soft tissue measuring 0.3 cm in maximum dimension. The specimen is entirely submitted in cassette C1. (TSD; 07/05/2018) TOB/TOB [address] [address] PATHOLOGY RPT PROCEDURE Name: WON MEDEROS W Room #: REG KRISTYN Guevara#: [id number] ������������������ Admission: 07/05/18 ������������������ Date of : 42 Discharge: Report #: [id number] Path Case #: [id number] . 02 Pathologist provided ICD-10: D12.3, D12.6, D64.9, Z80.0 . 02 CPT . 882560, 445363, 780804 Specimen Comment: A courtesy copy of this report has been sent to Specimen Comment: [phone], . Specimen Comment: Report sent to / DR JUNE Performed at: [address] [facility], [place], [place] [id number] MD Isidro Fuller MD Phone: [phone] Performed at: [address] [facility] [id number] MD Sisi Villarreal MD Phone: [phone]
== END | disposition home or self-care (01) ==
LOC: GI 07:53
DX: D12.3 Benign neoplasm of transverse colon (principal); D12.5 Benign neoplasm of sigmoid colon; Z80.0 Family history of malignant neoplasm of digestive organs; D50.9 Iron deficiency anemia, unspecified; K57.30 Diverticulosis of large intestine without perforation or abscess without bleeding; K64.8 Other hemorrhoids; Z68.32 Body mass index [BMI] 32.0-32.9, adult; Z87.891 Personal history of nicotine dependence; I10 Essential (primary) hypertension; I48.91 Unspecified atrial fibrillation; E78.5 Hyperlipidemia, unspecified; K21.9 Gastro-esophageal reflux disease without esophagitis; E11.9 Type 2 diabetes mellitus without complications
CPT/HCPCS: 62110; 62900

== ENCOUNTER 2018-08-10 10:21 | Emergency (ER) | payer OTHER ==
[~2018-08-10] VITALS: Ht 188 cm; Wt 113.4 kg
[2018-08-10 12:07] LABS: ABSOLUTE NEUTROPHILS 8.6 thou/uL (1.4-8.2); BASOPHILS 0.2 % (0.0-2.0); EOSINOPHILS 0.2 % (0.0-3.0); HEMATOCRIT 40.1 % (42.0-52.0); MCH 26.7 pg (26.0-34.0); MCHC 32.5 g/dL (28.0-37.0); MCV 82.2 fL (80.0-100.0); MONOCYTES 4.6 % (1.0-8.0); PLATELET COUNT 177 thou/uL (150-400); RBC 4.87 mil/uL (4.50-6.00); RDW 23.6 % (10.5-14.5); WBC 9.8 thou/uL (4.0-11.0)
[2018-08-10 12:21] LABS: ANION GAP 7 mmol/L (7-16); BUN 18 mg/dL (7-18); CALCIUM 8.7 mg/dL (8.5-10.1); CHLORIDE 104 mmol/L (98-107); CO2 27 mmol/L (21-32); GLUCOSE 174 mg/dL (74-106); POTASSIUM 4.5 mmol/L (3.5-5.1); SODIUM 138 mmol/L (136-145)
[2018-08-10 12:31] LABS: ALBUMIN 3.8 g/dL (3.4-5.0); SGOT 23 U/L (15-37); SGPT 23 U/L (30-65); TOTAL BILIRUBIN 0.4 mg/dL (<0.1-1.0); TOTAL PROTEIN 6.8 g/dL (6.4-8.2); TROPONIN-I <0.06 ng/mL (<0.06)
[2018-08-10] MEDS ORDERED: ACETAMINOPHEN-1 EAC1 PO (12:48)
[2018-08-10] MEDS ORDERED: LIDOCAINE PAIN1 EACH TOP (12:48)
[2018-08-10 13:14] LABS: ANISOCYTOSIS 1+
[2018-08-10 13:15] LABS: OVALOCYTES FEW; POIKILOCYTOSIS SLIGHT
[2018-08-10 13:16] LABS: LARGE PLATELETS OCCASIONAL; TEARDROPS OCCASIONAL
[2018-08-10 13:26] VITALS: BP 132/76
--- NOTE | 2018-08-10 15:57 | EKG ---
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 : 1940 Requested By: Ai Anderson Order Number: [id number] MD: Heriberto Francis Measurements Intervals [place] Rate: 62 P: MA: QRS: 9 QRSD: 105 T: 76 QT: 547 QTc: 556 Interpretive Statements Atrial fibrillation Borderline low voltage, extremity leads Prolonged QT interval Compared to ECG 04/23/2018 13:48:33 Prolonged QT interval now present Electronically Signed On 08-10-2018 15:56:55 CDT by Heriberto Francis [email or web address] ��������������������������������������������� <ELECTRONICALLY SIGNED> ���������������������������������������� By: Heriberto Francis MD ��������������������������������������������� 08/10/18 1556 1113 1113 Heriberto Francis MD /KAUR
== END 2018-08-10 13:26 | disposition home or self-care (01) ==
LOC: ER 10:21
PROVIDERS: Physician Assistant
DX: S20.212A Contusion of left front wall of thorax, initial encounter (principal); I10 Essential (primary) hypertension; E11.9 Type 2 diabetes mellitus without complications; K21.9 Gastro-esophageal reflux disease without esophagitis; I48.91 Unspecified atrial fibrillation; G47.30 Sleep apnea, unspecified; E78.5 Hyperlipidemia, unspecified; Z96.651 Presence of right artificial knee joint; Z86.2 Personal history of diseases of the blood and blood-forming organs and certain disorders involving the immune mechanism; Z87.891 Personal history of nicotine dependence; Z88.8 Allergy status to other drugs, medicaments and biological substances; Z88.6 Allergy status to analgesic agent; Z90.49 Acquired absence of other specified parts of digestive tract; W01.198A Fall on same level from slipping, tripping and stumbling with subsequent striking against other object, initial encounter; Y92.89 Other specified places as the place of occurrence of the external cause; Y93.89 Activity, other specified; Y99.8 Other external cause status

== ENCOUNTER → 2018-08-16 | Outpatient (CLI) | payer OTHER ==
[~2018-08-16] MED LIST changes: +ACETAMINOPHEN-1 EAC1 PO; +LIDOCAINE PAIN1 EACH TOP
[2018-08-16 16:06] LABS: CREATININE 0.9 mg/dL (0.7-1.3)
== END ==
LOC: LABMALL 15:21 → CAT 15:21
PROVIDERS: Nurse Practitioner
DX: J90 Pleural effusion, not elsewhere classified (principal); J84.10 Pulmonary fibrosis, unspecified; J98.11 Atelectasis; K76.9 Liver disease, unspecified

== ENCOUNTER → 2018-09-03 | Outpatient (CLI) | payer OTHER | LOC: RAD 15:31 | DX: J84.10 Pulmonary fibrosis, unspecified (principal); J98.11 Atelectasis; J18.9 Pneumonia, unspecified organism ==

== ENCOUNTER → 2018-10-23 | Outpatient (CLI) | payer OTHER | LOC: RAD 13:25 | DX: R06.00 Dyspnea, unspecified (principal); R05 Cough; Z88.6 Allergy status to analgesic agent; Z88.1 Allergy status to other antibiotic agents; Z88.8 Allergy status to other drugs, medicaments and biological substances ==

== ENCOUNTER → 2019-04-02 | Outpatient (CLI) | payer OTHER | LOC: SJCVC 14:55 | DX: I48.0 Paroxysmal atrial fibrillation (principal); I10 Essential (primary) hypertension; R94.31 Abnormal electrocardiogram [ECG] [EKG]; E78.00 Pure hypercholesterolemia, unspecified; E11.9 Type 2 diabetes mellitus without complications; M19.90 Unspecified osteoarthritis, unspecified site; Z79.01 Long term (current) use of anticoagulants; Z79.84 Long term (current) use of oral hypoglycemic drugs; Z79.899 Other long term (current) drug therapy ==

== ENCOUNTER → 2019-07-17 | Outpatient (CLI) | payer OTHER | LOC: SJCVC 09:59 | DX: I48.0 Paroxysmal atrial fibrillation (principal); R94.31 Abnormal electrocardiogram [ECG] [EKG]; I10 Essential (primary) hypertension; R60.9 Edema, unspecified; E78.00 Pure hypercholesterolemia, unspecified; Z79.82 Long term (current) use of aspirin; Z79.899 Other long term (current) drug therapy; Z79.84 Long term (current) use of oral hypoglycemic drugs; Z82.49 Family history of ischemic heart disease and other diseases of the circulatory system; Z87.891 Personal history of nicotine dependence; Z95.818 Presence of other cardiac implants and grafts ==

== ENCOUNTER → 2019-08-05 | Outpatient (CLI) | payer OTHER | LOC: RAD 12:13 | DX: J98.11 Atelectasis (principal); R05 Cough ==

== ENCOUNTER → 2020-05-14 | Outpatient (CLI) | payer OTHER ==
[~2020-05-14] MED LIST changes: +EFFER-K 20 MEQ20 ME1 PO; +LASIX 20 MG TAB20 MG PO
== END ==
LOC: SJCVC 11:58
PROVIDERS: ATTEND Internal Medicine Cardiovascular Disease
DX: I48.0 Paroxysmal atrial fibrillation (principal); R94.31 Abnormal electrocardiogram [ECG] [EKG]; R42 Dizziness and giddiness; E78.00 Pure hypercholesterolemia, unspecified; I10 Essential (primary) hypertension; R60.9 Edema, unspecified; E11.9 Type 2 diabetes mellitus without complications; E78.5 Hyperlipidemia, unspecified; M19.90 Unspecified osteoarthritis, unspecified site; Z87.891 Personal history of nicotine dependence; Z95.818 Presence of other cardiac implants and grafts; Z79.82 Long term (current) use of aspirin; Z79.84 Long term (current) use of oral hypoglycemic drugs; Z79.899 Other long term (current) drug therapy

== ENCOUNTER 2020-06-05 11:42 | Emergency (ER) | payer OTHER ==
[~2020-06-05] VITALS: Ht 188 cm; Wt 113.0 kg
[~2020-06-05 11:42] MED LIST changes: -EFFER-K 20 MEQ20 ME1 PO; -LASIX 20 MG TAB20 MG PO
[2020-06-05] MEDS ORDERED: EFFER-K 20 MEQ20 ME1 PO (12:32)
[2020-06-05] MEDS ORDERED: LASIX 20 MG TAB20 MG PO (12:32)
[2020-06-05 12:39] LABS: ABSOLUTE NEUTROPHILS 3.4 thou/uL (1.4-8.2); BASOPHILS 0.9 % (0.0-2.0); EOSINOPHILS 3.2 % (0.0-3.0); HEMATOCRIT 42.7 % (42.0-52.0); HEMOGLOBIN 14.9 gm/dL (14.0-18.0); LYMPHOCYTES 20.4 % (24.0-44.0); MCH 32.6 pg (26.0-34.0); MCHC 34.8 g/dL (28.0-37.0); MCV 93.7 fL (80.0-100.0); MONOCYTES 9.7 % (1.0-8.0); PLATELET COUNT 172 thou/uL (150-400); POLYS 65.8 % (36.0-66.0); RBC 4.56 mil/uL (4.50-6.00); RDW 13.7 % (10.5-14.5); WBC 5.2 thou/uL (4.0-11.0)
[2020-06-05 12:53] LABS: CALCIUM 8.8 mg/dL (8.5-10.1); CREATININE 0.9 mg/dL (0.7-1.3); POTASSIUM 4.1 mmol/L (3.5-5.1)
[2020-06-05 13:01] LABS: ALBUMIN 3.8 g/dL (3.4-5.0); TOTAL BILIRUBIN 0.7 mg/dL (0.2-1.0); TOTAL PROTEIN 7.3 g/dL (6.4-8.2)
[2020-06-05 14:53] VITALS: BP 133/86
== END 2020-06-05 14:54 | disposition home or self-care (01) ==
LOC: ER 11:42
PROVIDERS: Physician Assistant
DX: R51.9 Headache, unspecified (principal); I10 Essential (primary) hypertension; E11.9 Type 2 diabetes mellitus without complications; I48.91 Unspecified atrial fibrillation; Z87.891 Personal history of nicotine dependence; Z88.8 Allergy status to other drugs, medicaments and biological substances; Z88.6 Allergy status to analgesic agent; Z79.899 Other long term (current) drug therapy; Z90.49 Acquired absence of other specified parts of digestive tract; Z96.651 Presence of right artificial knee joint

== ENCOUNTER → 2020-07-27 | Outpatient (CLI) | payer OTHER ==
[~2020-07-27] MED LIST changes: +EFFER-K 20 MEQ20 ME1 PO; +LASIX 20 MG TAB20 MG PO
== END ==
LOC: RAD 11:57
PROVIDERS: ATTEND Internal Medicine Pulmonary Disease
DX: J98.4 Other disorders of lung (principal)

== ENCOUNTER 2020-09-26 09:20 | Emergency (ER) | payer OTHER ==
[~2020-09-26] VITALS: Ht 188 cm; Wt 113.0 kg
--- NOTE | 2020-09-26 10:59 | EKG ---
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
[2020-09-26 11:20] VITALS: BP 160/88
[2020-09-26] MEDS ORDERED: Z-TUSS AC 2 MG118 ML PO (11:20)
[2020-09-26] MEDS ORDERED: PREDNISONE50 MG PO (11:20)
== END 2020-09-26 11:20 | disposition home or self-care (01) ==
LOC: ER 09:20
DX: R05 Cough (principal); Z20.822 Contact with and (suspected) exposure to COVID-19; I10 Essential (primary) hypertension; E11.9 Type 2 diabetes mellitus without complications; K21.9 Gastro-esophageal reflux disease without esophagitis; I48.91 Unspecified atrial fibrillation; E78.5 Hyperlipidemia, unspecified; F17.210 Nicotine dependence, cigarettes, uncomplicated; Z90.89 Acquired absence of other organs; Z88.6 Allergy status to analgesic agent; Z88.8 Allergy status to other drugs, medicaments and biological substances

== ENCOUNTER → 2020-11-12 | Outpatient (CLI) | payer OTHER ==
[~2020-11-12] MED LIST changes: +PREDNISONE50 MG PO; +Z-TUSS AC 2 MG118 ML PO
== END ==
LOC: SJCVC 12:44
PROVIDERS: ATTEND Internal Medicine Cardiovascular Disease
DX: R94.31 Abnormal electrocardiogram [ECG] [EKG] (principal); I48.0 Paroxysmal atrial fibrillation; I10 Essential (primary) hypertension; E78.00 Pure hypercholesterolemia, unspecified; E78.5 Hyperlipidemia, unspecified; E11.9 Type 2 diabetes mellitus without complications; R60.9 Edema, unspecified; Z79.82 Long term (current) use of aspirin; Z79.84 Long term (current) use of oral hypoglycemic drugs; Z79.899 Other long term (current) drug therapy; Z88.8 Allergy status to other drugs, medicaments and biological substances; Z87.891 Personal history of nicotine dependence; Z72.89 Other problems related to lifestyle

== ENCOUNTER → 2020-11-19 | Outpatient (CLI) | payer OTHER | LOC: SJCVCIMAG 07:33 | PROVIDERS: ATTEND Internal Medicine Cardiovascular Disease | DX: I34.0 Nonrheumatic mitral (valve) insufficiency (principal); I48.0 Paroxysmal atrial fibrillation ==

== ENCOUNTER 2021-02-05 14:58 | Emergency (ER) | payer OTHER ==
[~2021-02-05] VITALS: Ht 188 cm; Wt 113.0 kg
[2021-02-05 14:59] VITALS: BP 139/67
[2021-02-05] MEDS ORDERED: FAMOTIDINE 20 M20 MG PO (15:06)
[2021-02-05] MEDS ORDERED: ASA81BEC PO (15:10)
[2021-02-05] MEDS ORDERED: IRON325 M1 PO (15:10)
[2021-02-05] MEDS ORDERED: TAMSULOSIN HCL0.4 MG PO (15:11)
[2021-02-05] MEDS ORDERED: EZETIMIBE10 MG PO (15:12)
[2021-02-05] MEDS ORDERED: AZITHROMYCIN 2250 MG PO (15:12)
[2021-02-05] MEDS ORDERED: NORCO5 PO (16:07)
== END 2021-02-05 16:40 | disposition home or self-care (01) ==
LOC: ER 14:58
DX: S40.011A Contusion of right shoulder, initial encounter (principal); I10 Essential (primary) hypertension; E11.9 Type 2 diabetes mellitus without complications; K21.9 Gastro-esophageal reflux disease without esophagitis; E78.5 Hyperlipidemia, unspecified; Z90.49 Acquired absence of other specified parts of digestive tract; Z79.899 Other long term (current) drug therapy; Z87.891 Personal history of nicotine dependence; Z88.6 Allergy status to analgesic agent; Z88.8 Allergy status to other drugs, medicaments and biological substances; W01.0XXA Fall on same level from slipping, tripping and stumbling without subsequent striking against object, initial encounter; Y93.89 Activity, other specified; Y92.89 Other specified places as the place of occurrence of the external cause; Y99.8 Other external cause status

== ENCOUNTER → 2021-05-17 | Outpatient (CLI) | payer OTHER ==
[~2021-05-17] MED LIST changes: +ASA81BEC PO; +AZITHROMYCIN 2250 MG PO; +EZETIMIBE10 MG PO; +FAMOTIDINE 20 M20 MG PO; +IRON325 M1 PO; +NORCO5 PO; +TAMSULOSIN HCL0.4 MG PO
== END ==
LOC: SJCVC 15:41
PROVIDERS: ATTEND Internal Medicine Cardiovascular Disease
DX: I48.0 Paroxysmal atrial fibrillation (principal); R94.31 Abnormal electrocardiogram [ECG] [EKG]; R42 Dizziness and giddiness; E78.00 Pure hypercholesterolemia, unspecified; I10 Essential (primary) hypertension; R06.00 Dyspnea, unspecified; Z88.8 Allergy status to other drugs, medicaments and biological substances; Z79.82 Long term (current) use of aspirin; Z79.84 Long term (current) use of oral hypoglycemic drugs; Z79.899 Other long term (current) drug therapy; E11.9 Type 2 diabetes mellitus without complications; E78.5 Hyperlipidemia, unspecified; M19.90 Unspecified osteoarthritis, unspecified site; Z87.891 Personal history of nicotine dependence; Z72.89 Other problems related to lifestyle